=== PATIENT | female | born 1985 | race Caucasian/White ===

== ENCOUNTER 2021-05-13 07:29 | Emergency (ER) | payer OTHER, SELFPAY ==
--- NOTE | ~2021-05-13 | CT_ITS ---
EXAMINATION: CT abdomen pelvis w con EXAM DATE: 05/13/2021 08:31 INDICATION: Abdominal pain, GI bleed . Syncope. TECHNIQUE: Spiral CT of the abdomen and pelvis was performed following intravenous injection of 100 m L Omnipaque 350. Axial, coronal and sagittal images of the abdomen and pelvis were reviewed. The do se-length product (DLP) for this examination was 276.18 mGy-cm. The exposure was tailored according to patient size (auto mA exposure control), and iterative reconstruction (ASIR) was used as additiona l dose reduction technique. There is no prior study for comparison. FINDINGS: There is moderate diffuse descending colonic wall edema consistent with colitis most likely infectious. Also rectosigmoid fluid, diarrhea. The liver, spleen, adrenal glands and pancreas are u nremarkable. Gallbladder is unremarkable. No biliary obstruction. Portal and splenic veins are pat ent. Kidneys enhance symmetrically. There is no hydronephrosis. There is IUD which appears to be centrally located within the endometrium, expected position. The bladder is unremarkable. There is no retroperitoneal or pelvic lymphadenopathy. The appendix is normal. The stomach and small bowel are unremarkable. No free intraperitoneal ga s. The heart is normal in size. There are no pericardial or pleural effusions. The lung bases are unremarkable. There are no osteoblastic or osteolytic lesions identified. IMPRESSION: Descending colonic colitis, probably infectious etiology. Diarrhea. Reviewed, dictated and finalized at location D.
--- NOTE | ~2021-05-13 | CT_ITS ---
EXAMINATION: CT brain wo con EXAM DATE: 05/13/2021 08:32 INDICATION: Syncope , head injury with laceration above left eye. Blood in stool. TECHNIQUE: Spiral CT of the head was performed without contrast. Axial, coronal and sagittal images were reviewed. The dose-length product (DLP) for this examination was 605.33 mGy-cm. The exposure w as tailored according to patient size, and iterative reconstruction (ASIR) was used as additional dos e reduction technique. There is no prior study for comparison. FINDINGS: There is no acute intraparenchymal hemorrhage. No evidence of intraparenchymal brain mass lesion. No evidence of acute infarction. There is no mass effect or midline shift. The ventricles are normal in size. There are no extra-axial collections. There are no acute calvarial fractures. T he orbits are unremarkable. Soft tissue is unremarkable. Small left maxillary sinus retention cyst. IMPRESSION: 1. Unremarkable head CT examination. Reviewed, dictated and finalized at location D.
[2021-05-13 07:29] VITALS: BP 112/78; PULSE 68; RESP 20; TEMP 36.8; O2SAT 100
[2021-05-13 07:51] LABS: Basophils Percent Auto 0.5 % (0.2-1.2); Eosinophils Absolute Auto 0.1 K/mm3 (0-0.3); Eosinophils Percent Auto 1.2 % (0-4.4); Hematocrit 40.3 % (37.0-47.0); Hemoglobin 13.4 g/dL (12.0-15.0); Immature Granulocyte Absolute 0.02 K/mm3 (0.00-0.031); Immature Granulocyte Percent A 0.2 % (0-0.5); Lymphocytes Absolute Auto 1.42 K/mm3 (0.9-3.2); Lymphocytes Percent Auto 17.6 % (18.3-44.2); Mean Corpuscular HGB Conc 33.3 g/dl (32-36); Mean Corpuscular Hemoglobin 29.1 pg (26-34); Mean Corpuscular Volume 87.4 fl (80-100); Mean Platelet Volume 9.5 fl (7.4-10.4); Monocytes Absolute Auto 0.5 K/mm3 (0.1-0.6); Monocytes Percent Auto 5.7 % (2.6-8.5); Neutrophils Absolute Auto 6.1 K/mm3 (1.3-6.7); Neutrophils Percent Auto 74.8 % (45.5-73.1); Platelet Count Result 175 k/mm3 (150-375); Red Blood Count 4.61 M/mm3 (4.2-5.4); Red Cell Distribution Width 11.9 % (11.5-14.5); White Blood Count 8.1 K/mm3 (4.5-10.0)
[2021-05-13 07:52] VITALS: BP 117/86; BP 127/82; PULSE 77; PULSE 86
[2021-05-13 07:53] VITALS: BP 113/84; PULSE 102
[2021-05-13] MEDS: SODIUM CHLORIDE 0.9% IV 1,000 ML 999 ML IV CONT (07:55)
[2021-05-13 08:02] LABS: Alanine Aminotransferase 25 U/L (4-35); Albumin Level 4.9 g/dL (3.5-5.1); Alkaline Phosphatase 48 U/L (38-126); Anion Gap 9 mmol/L (8-16); Aspartate Amino Transferase 30 U/L (14-36); Bilirubin,Total 1.1 mg/dL (0.2-1.3); Blood Urea Nitrogen 9 mg/dL (7-17); Calcium 9.3 mg/dL (8.4-10.2); Carbon Dioxide 25 mmol/L (22-30); Chloride 103 mmol/L (98-107); Estimated CRCL calculation 82 ml/min; Estimated Glomerular Filt Rate > 60; Glucose 105 mg/dL (65-110); Potassium 3.6 mmol/L (3.4-5.0); Sodium 137 mmol/L (137-145)
[2021-05-13 08:04] LABS: Prothrombin Time 12.8 Seconds (11.1-14.7)
[2021-05-13 08:05] LABS: Partial Thromboplastin Time 27.5 SECONDS (22.3-36.8)
--- NOTE | 2021-05-13 08:14 | ECG_ITS ---
Measurements Intervals [place] Rate: 67 P: 78 WI: 190 QRS: 72 QRSD: 88 T: 54 QT: 397 QTc: 420 Interpretive Statements SINUS RHYTHM WITH SINUS ARRHYTHMIA INCOMPLETE RIGHT BUNDLE BRANCH BLOCK BASELINE WANDER- AVL, AVF, V4-V6 BORDERLINE ECG Electronically Signed On 05-13-2021 8:45:34 CDT by El Gallegos D.O.
--- NOTE | 2021-05-13 08:14 | ED.GIBLEED ---
HPI - GI Bleed General Chief complaint: GI Bleed Stated complaint: SYNCOPE Time Seen by Provider: 05/13/21 07:37 Source: patient Mode of arrival: ambulatory Limitations: no limitations History of Present Illness HPI Narrative: Patient is a 35-year-old female complaining of rectal bleed accompanied by abdominal cramping and diarrhea that started yesterday. Patient states that she has had about 3-4 episodes of rectal bleeding since yesterday, blood mixed with stool, and today it was all blood. Patient states that she went to the bathroom yesterday, about to have a bowel movement, felt dizzy and she passed out, at that time she also had blood in her stool. Patient states that she did hit her head on the floor. Patient does not know how long she was out for, just briefly may be 1 or 2 minutes . No syncopal episodes today. Patient denies any hemoptysis, hematemesis, fever or chills. Patient denies any vaginal bleeding. Related Data Allergies Allergy/AdvReac Type Severity Reaction Status Date / Time No Known Allergies Allergy Unverified 05/13/21 07:51 Review of Systems Review of Systems: All systems reviewed & are unremarkable except as noted in HPI and below Constitutional: Constitutional: Denies body ache(s), Denies chills, Denies excessive sweating, Denies fatigue, Denies fever(s), Denies headache(s), Denies lethargy, Denies malaise, Denies weakness and Denies weight loss Eyes: Eyes: Denies blurry vision, Denies change in vision and Denies loss of vision ENT: Denies dizziness, Denies ear discharge, Denies headache(s), Denies lip swelling, Denies epistaxis, Denies nasal congestion, Denies neck pain, Denies throat swelling and Denies tongue swelling Cardiovascular: Cardiovascular: Denies chest pain, Denies chest pain at rest, Denies chest pain with activity, Denies diaphoresis, Denies rapid heart rate, Denies edema, Denies irregular heart rhythm, Denies lightheadedness, Denies palpitations, Denies dyspnea and Denies dyspnea on exertion Respiratory: Respiratory: Denies chest congestion, Denies cough, Denies hemoptysis, Denies dyspnea and Denies dyspnea on exertion Gastrointestinal: Gastrointestinal: Denies melena, Denies hematochezia, Denies diarrhea, Denies nausea, Denies vomiting and Denies hematemesis Musculoskeletal: Musculoskeletal: Denies abnormal gait, Denies deformity, Denies joint swelling, Denies limited range of motion, Denies neck pain and Denies numbness Neurologic: Denies Abnormal speech present, Denies abnormal gait, Denies confusion, Denies dizziness, Denies headache(s), Denies focal weakness, Denies loss of vision, Denies numbness, Denies Other visual disturbances, Denies Sensory deficit (Neuro) and Denies weakness Psychiatric: Psychiatric: Denies confusion, Denies depression, Denies auditory hallucinations, Denies homicidal ideation and Denies suicidal ideation Endocrine: Endocrine: Denies cold intolerance, Denies excessive sweating, Denies fatigue, Denies heat intolerance and Denies palpitations Hematologic/Lymphatic: Hematologic/Lymphatic: Denies easy bruising Allergic/Immunologic: Allergic/Immunologic: Denies lip swelling, Denies throat swelling and Denies tongue swelling PMFSH Comments Past medical history: None Family history: Negative for colorectal CA or bleeding diathesis Social history: Non-smoker no EtOH or drug use Exam Const: General: cooperative, healthy appearing, comfortable, no acute distress, well developed, alert and awake; No confusion Orientation/consciousness: oriented to person, oriented to place, oriented to time, patient oriented x3 and No confusion Limitations: no limitations HENMT: Head: normal to inspection, normocephalic and atraumatic Ears: hearing grossly normal bilaterally, TM normal on the right and TM normal on the left General nose exam: Normal external nose present, Normal nares present and No nasal discharge present Face and sinus: normal facial exam Mouth: Yes Normal oral
[2021-05-13 08:43] LABS: Troponin I < 0.012 ng/mL (0.000-0.034)
[2021-05-13 10:43] VITALS: BP 124/86; PULSE 87; RESP 18; O2SAT 98
== END 2021-05-13 11:17 | disposition home or self-care (01) ==
PROVIDERS: Emergency Provider Emergency Medicine
DX: K52.9 Noninfective gastroenteritis and colitis, unspecified (principal); R55 Syncope and collapse
CPT/HCPCS: 36415; 70450; 74177; 80053; 84484; 85025; 85610; 85730; 93005; 96360; 99284; J7030; Q9967

== ENCOUNTER 2022-08-06 10:27 | Emergency (ER) | payer OTHER, SELFPAY ==
[2022-08-06 10:56] VITALS: BP 137/98; PULSE 83; RESP 16; TEMP 36.8; O2SAT 99
[2022-08-06 11:42] LABS: Influenza A QL RT-PCR Positive (Negative); Influenza B QL RT-PCR Negative (Negative); SARS-CoV-2 RNA PCR Negative
--- NOTE | 2022-08-06 11:56 | ED.URI ---
HPI - URI/Sore Throat General Chief Complaint: Upper Respiratory Infection Stated Complaint: fever, fatigue Time Seen by Provider: 08/06/22 11:45 History of Present Illness HPI Narrative: 37-year-old female here for evaluation of cough, congestion, generalized body aches and weakness over the past day. Patient's daughter is sick with similar symptoms and tested positive for the flu. Patient presents requesting antiviral therapy as she typically gets very sick with the flu. No history of respiratory disease. No shortness of breath, chest pain, syncope. Related Data Allergies Allergy/AdvReac Type Severity Reaction Status Date / Time No Known Allergies Allergy Unverified 05/13/21 07:51 Review of Systems Review of Systems: Gen.: Reports body aches. Denies fevers or chills Eyes: Denies eye pain or visual change ENT: Reports congestion. Respiratory: Reports cough and congestion. Denies shortness of breath CV: Denies chest pain or palpitations GI: Denies abdominal pain nausea, emesis or diarrhea denies burning, urgency, frequency or hematuria Musculoskeletal: Denies back pain or muscle pain Neuro: Denies numbness, tingling, weakness or focal weakness Skin: Denies rash Except as documented, all other systems reviewed and negative Exam Narrative: APPEARANCE: Well appearing, no pain in distress, well-nourished. Head: Normocephalic and atraumatic. EYES: PERRLA/EOMI, conjunctivae clear NOSE: No nasal drainage EARS: External ear normal in appearance THROAT: Oropharynx is clear. Mucous membranes are moist. NECK: Supple. No adenopathy, no masses. RESPIRATORY: Airway patent, respirations nonlabored. Clear to auscultation bilaterally, no rales, rhonchi, wheezing. CARDIOVASCULAR: Regular rate and rhythm without murmurs, rubs, or gallops. ABDOMINAL: Normoactive bowel sounds. Soft, nontender, nondistended. No rebound tenderness or guarding. MUSCULOSKELETAL: Extremities are warm and well-perfused. Moves all extremities well. No edema. NEURO: Normal speech. No focal neurologic deficits. SKIN: Skin is warm and dry. No rashes. PSYCHIATRIC: Normal affect/mood.. Course Vital Signs Vital signs: Vital Signs Temperature 98.3 F 08/06/22 10:56 Pulse Rate 83 08/06/22 10:56 Respiratory Rate 16 08/06/22 10:56 Blood Pressure 137/98 H 08/06/22 10:56 Pulse Oximetry 99 08/06/22 10:56 Oxygen Delivery Room Air 08/06/22 10:56 Temperature 98.3 F 08/06/22 10:56 Pulse Rate 83 08/06/22 10:56 Respiratory Rate 16 08/06/22 10:56 Blood Pressure 137/98 H 08/06/22 10:56 Pulse Oximetry 99 08/06/22 10:56 Oxygen Delivery Room Air 08/06/22 10:56 MDM - URI/Sore Throat MDM Narrative Medical decision making narrative: 37-year-old female here for evaluation of upper respiratory infectious symptoms for the past day in the setting of positive influenza A contact. Patient's flu test is positive here. Patient requesting antivirals which I feel is reasonable as she is inside the window for treatment. We will send prescription to the pharmacy and discussed return precautions with patient. No indication for imaging of the chest at this time as her lung sounds are clear, she is afebrile upon arrival, nontoxic-appearing. Lab Data Labs: Lab Results 08/06/22 Range/Units 10:58 Influenza A (RT-PCR) Positive (Negative) Influenza B (RT-PCR) Negative (Negative) SARS-CoV-2 RNA (RT-PCR) Negative Discharge Plan Discharge Clinical Impression: Influenza Patient Disposition: Home, Self-Care Condition: Stable Instructions: Antibiotic Form, Influenza (ED) Additional Instructions: Your flu test is positive today which likely explains your symptoms. As discussed we will proceed with the antiviral treatment. Please take this as prescribed. Please follow-up with your primary care doctor next week. Wear a mask around others and stay home from work if you are sick. Return if you feel weak, develop
== END 2022-08-06 12:05 | disposition home or self-care (01) ==
PROVIDERS: Emergency Medicine; Emergency Provider Physician Assistant; PCP Hospitalist
DX: J10.1 Influenza due to other identified influenza virus with other respiratory manifestations (principal)
CPT/HCPCS: 87636; 99283